=== PATIENT | male | born 1950 | race Caucasian/White ===

== ENCOUNTER 2020-05-09 13:00 | Inpatient (IN) ==
[2020-05-09] MEDS ORDERED: Albuterol HFA INHALER 8 gm MDI INH ONE ×2 (13:52→17:31)
[2020-05-09] MEDS ORDERED: Dexamethasone IV 4 MG/ML VIAL 1 ml VIAL IV SLOW PU ONE (13:53)
[2020-05-09] MEDS ORDERED: NS 0.9% 500 ml BAG 500 ML IV ONE (13:53)
[2020-05-09 14:50] LABS: ABS Lymphocytes 0.3 10^3/ul (1.0-4.8); ABS Monocytes 0.7 10^3/ul (0-0.8); ABS Neutrophils 11.5 10^3/ul (1.5-7.7); Hematocrit 41 % (42-52); Hemoglobin 13.7 g/dL (14.0-18.0); Lymphocyte % 2.6 %; Mean Corpuscular HGB Conc 34 g/dL (31-36); Mean Corpuscular Hemoglobin 32 pg (27-31); Mean Corpuscular Volume 95 fL (80-94); Mean Platelet Volume 8.1 fL (7.4-10.4); Platelet Count 215 10^3/uL (150-450); Red Blood Count 4.26 10^6 /uL (4.18-5.48); Red Cell Distribution Width 15 % (10-15); White Blood Count 12.5 10^3/uL (3.5-10.8)
[2020-05-09 15:05] LABS: Influenza A Molecular Negative (Negative); Influenza B Molecular Negative (Negative)
[2020-05-09 15:14] LABS: LDH 159 U/L (140-271)
[2020-05-09 15:16] LABS: ALT 11 U/L (7-52); AST 18 U/L (13-39); Albumin 3.8 g/dL (3.2-5.2); Albumin/Globulin Ratio 1.2 (1-3); Alkaline Phosphatase 59 U/L (34-104); Anion Gap 7 mmol/L (2-11); BUN/Creatinine Ratio 28.4 (8-20); Blood Urea Nitrogen 29 mg/dL (6-24); C Reactive Protein 390.99 mg/L (<8.01); CO2 Carbon Dioxide 30 mmol/L (22-32); Calcium 9.4 mg/dL (8.6-10.3); Chloride 98 mmol/L (101-111); EGFR African American 87.6 (>60); EGFR Non-African American 72.4 (>60); Globulin 3.3 g/dL (2-4); Glucose 104 mg/dL (70-100); Potassium 4.4 mmol/L (3.5-5.0); Sodium 135 mmol/L (135-145); Total Protein 7.1 g/dL (6.4-8.9)
[2020-05-09] MEDS ORDERED: Azithromycin 500 mg/250 ml NS 500 MG/250 ML BAG IVPB ONE (15:22)
[2020-05-09] MEDS ORDERED: cefTRIAXone 1 gm/50 mL NS BAG 1 GM/50 ML BAG IV ONE (15:22)
[2020-05-09 15:30] LABS: Ferritin 442.4 ng/mL (24-336)
[2020-05-09] MEDS ORDERED: NS 0.9% 1000 ml BAG 2,250 ML IV ONE (15:30)
[2020-05-09] MEDS ORDERED: Iohexol 350 (CONTRAST) 500 ML MDV IV ONE (15:30)
[2020-05-09 16:05] LABS: Troponin I 0.03 ng/mL (<0.03)
[2020-05-09] MEDS ORDERED: cefTRIAXone 1 gm/50 mL NS BAG 1 GM/50 ML BAG IVPB SCH (19:55)
[2020-05-09] MEDS ORDERED: Azithromycin 500 mg/250 ml NS 500 MG/250 ML BAG IVPB SCH (20:00)
[2020-05-09] MEDS ORDERED: Albuterol HFA INHALER 8 gm MDI INH PRN (20:04)
[2020-05-09 20:48] LABS: Magnesium 1.9 mg/dL (1.9-2.7)
[2020-05-09 21:01] LABS: Cholesterol 114 mg/dL; HDL Cholesterol 43.4 mg/dL; LDL Cholesterol 54 mg/dL; Triglycerides 84 mg/dL
[2020-05-09] MEDS: Mometasone/Formoter 200/5 MDI INH SCH (22:41)
[2020-05-09] MEDS: Albuterol HFA INHALER 8 gm MDI INH SCH (22:42)
[2020-05-10] MEDS: Enoxaparin 40 MG/0.4 ML SYR SUBCUT SCH ×2 (00:18→22:29)
[2020-05-10] MEDS: Albuterol HFA INHALER 8 gm MDI INH SCH ×6 (03:31→23:33)
[2020-05-10 06:16] LABS: ABS Lymphocytes 0.3 10^3/ul (1.0-4.8); ABS Monocytes 0.2 10^3/ul (0-0.8); ABS Neutrophils 5.9 10^3/ul (1.5-7.7); Hematocrit 36 % (42-52); Hemoglobin 11.8 g/dL (14.0-18.0); Lymphocyte % 4.8 %; Mean Corpuscular HGB Conc 33 g/dL (31-36); Mean Corpuscular Hemoglobin 32 pg (27-31); Mean Corpuscular Volume 96 fL (80-94); Mean Platelet Volume 8.6 fL (7.4-10.4); Platelet Count 192 10^3/uL (150-450); Red Blood Count 3.72 10^6 /uL (4.18-5.48); Red Cell Distribution Width 15 % (10-15); White Blood Count 6.4 10^3/uL (3.5-10.8)
[2020-05-10 06:31] LABS: BUN/Creatinine Ratio 30.3 (8-20); Calcium 8.6 mg/dL (8.6-10.3); EGFR African American 102.6 (>60); EGFR Non-African American 84.8 (>60); Potassium 3.7 mmol/L (3.5-5.0)
[2020-05-10] MEDS: SPIRIVA Respimat (tiotropium) 2.5 mcg/inh Inhaler INH SCH (07:46)
[2020-05-10] MEDS: Mometasone/Formoter 200/5 MDI INH SCH ×2 (07:46→19:36)
[2020-05-10] MEDS ORDERED: Iohexol 300 (CONTRAST) 10 ML SDV IV ONE (11:54)
[2020-05-10] MEDS: Azithromycin 500 mg/250 ml NS 500 MG/250 ML BAG IVPB SCH (17:21)
[2020-05-10] MEDS: cefTRIAXone 1 gm/50 mL NS BAG 1 GM/50 ML BAG IVPB SCH (17:21)
[2020-05-10] MEDS: Benzocaine/Menthol LOZ PO PRN ×2 (17:22→22:35)
[2020-05-11] MEDS: Albuterol HFA INHALER 8 gm MDI INH SCH ×4 (03:36→19:12)
[2020-05-11 07:11] LABS: Hematocrit 35 % (42-52); Hemoglobin 11.3 g/dL (14.0-18.0); Mean Corpuscular HGB Conc 33 g/dL (31-36); Mean Corpuscular Hemoglobin 31 pg (27-31); Mean Corpuscular Volume 96 fL (80-94); Mean Platelet Volume 7.9 fL (7.4-10.4); Platelet Count 243 10^3/uL (150-450); Red Blood Count 3.63 10^6 /uL (4.18-5.48); Red Cell Distribution Width 15 % (10-15)
[2020-05-11 07:34] LABS: BUN/Creatinine Ratio 31.3 (8-20); C Reactive Protein 140.2 mg/L (<8.01); Calcium 8.5 mg/dL (8.6-10.3); EGFR Non-African American 95.8 (>60); Potassium 4.1 mmol/L (3.5-5.0)
[2020-05-11] MEDS: SPIRIVA Respimat (tiotropium) 2.5 mcg/inh Inhaler INH SCH (07:42)
[2020-05-11] MEDS: Mometasone/Formoter 200/5 MDI INH SCH ×2 (07:42→19:12)
[2020-05-11 09:07] LABS: ABS Lymphocytes 0.4 10^3/ul (1.0-4.8); ABS Monocytes 0.4 10^3/ul (0-0.8); ABS Neutrophils 12.2 10^3/ul (1.5-7.7); Nucleated Red Blood Cells % 0.1
[2020-05-11] MEDS: Azithromycin 500 mg/250 ml NS 500 MG/250 ML BAG IVPB SCH (17:38)
[2020-05-11] MEDS: cefTRIAXone 1 gm/50 mL NS BAG 1 GM/50 ML BAG IVPB SCH (17:50)
[2020-05-11] MEDS: Benzocaine/Menthol LOZ PO PRN (17:55)
[2020-05-11] MEDS: Enoxaparin 40 MG/0.4 ML SYR SUBCUT SCH (19:36)
[2020-05-12] MEDS: Albuterol HFA INHALER 8 gm MDI INH SCH ×2 (01:00→07:23)
[2020-05-12] MEDS: Benzocaine/Menthol LOZ PO PRN ×4 (03:34→21:10)
[2020-05-12] MEDS: Mometasone/Formoter 200/5 MDI INH SCH ×2 (07:23→21:00)
[2020-05-12] MEDS: SPIRIVA Respimat (tiotropium) 2.5 mcg/inh Inhaler INH SCH (07:24)
[2020-05-12 07:27] LABS: ABS Lymphocytes 0.5 10^3/ul (1.0-4.8); ABS Monocytes 0.3 10^3/ul (0-0.8); ABS Neutrophils 10.3 10^3/ul (1.5-7.7); Hematocrit 36 % (42-52); Hemoglobin 11.9 g/dL (14.0-18.0); Lymphocyte % 4.2 %; Mean Corpuscular HGB Conc 33 g/dL (31-36); Mean Corpuscular Hemoglobin 32 pg (27-31); Mean Corpuscular Volume 95 fL (80-94); Mean Platelet Volume 7.9 fL (7.4-10.4); Nucleated Red Blood Cells % 0.1; Platelet Count 275 10^3/uL (150-450); Red Blood Count 3.79 10^6 /uL (4.18-5.48); Red Cell Distribution Width 15 % (10-15); White Blood Count 11.1 10^3/uL (3.5-10.8)
[2020-05-12 07:35] LABS: BUN/Creatinine Ratio 37.1 (8-20); Calcium 8.6 mg/dL (8.6-10.3); EGFR African American 135.3 (>60); EGFR Non-African American 111.8 (>60); Potassium 4.6 mmol/L (3.5-5.0)
[2020-05-12] MEDS: cefTRIAXone 1 gm/50 mL NS BAG 1 GM/50 ML BAG IVPB SCH (18:30)
[2020-05-12] MEDS: Azithromycin 500 mg/250 ml NS 500 MG/250 ML BAG IVPB SCH (18:30)
[2020-05-12] MEDS: Enoxaparin 40 MG/0.4 ML SYR SUBCUT SCH (21:10)
[2020-05-13] MEDS: SPIRIVA Respimat (tiotropium) 2.5 mcg/inh Inhaler INH SCH (07:45)
[2020-05-13] MEDS: Mometasone/Formoter 200/5 MDI INH SCH ×2 (07:45→19:32)
[2020-05-13] MEDS: cefTRIAXone 1 gm/50 mL NS BAG 1 GM/50 ML BAG IVPB SCH (17:16)
[2020-05-13] MEDS: Enoxaparin 40 MG/0.4 ML SYR SUBCUT SCH (19:34)
[2020-05-14] MEDS: Mometasone/Formoter 200/5 MDI INH SCH ×2 (09:35→19:24)
[2020-05-14] MEDS: SPIRIVA Respimat (tiotropium) 2.5 mcg/inh Inhaler INH SCH (09:35)
[2020-05-14] MEDS: cefTRIAXone 1 gm/50 mL NS BAG 1 GM/50 ML BAG IVPB SCH (17:24)
[2020-05-14] MEDS: Enoxaparin 40 MG/0.4 ML SYR SUBCUT SCH (20:17)
[2020-05-15] MEDS: Mometasone/Formoter 200/5 MDI INH SCH (07:38)
[2020-05-15] MEDS: SPIRIVA Respimat (tiotropium) 2.5 mcg/inh Inhaler INH SCH (07:38)
[2020-05-15] MEDS ORDERED: Magnesium Sulfate IV 1GM/100ML 1 GM/100 ML BAG IV ONE (08:34)
[2020-05-15 09:22] LABS: BUN/Creatinine Ratio 29.3 (8-20); Calcium 8.3 mg/dL (8.6-10.3); EGFR African American 112.7 (>60); EGFR Non-African American 93.2 (>60); Magnesium 1.8 mg/dL (1.9-2.7); Potassium 4.3 mmol/L (3.5-5.0)
[2020-05-15 11:24] VITALS: BP 145/76
== END 2020-05-15 18:10 | disposition home health service (06) | DRG 871 ==
LOC: ED 13:00 → MED 19:48
PROVIDERS: ADMIT Student in an Organized Health Care Education/Training Program; ATTEND Internal Medicine

== ENCOUNTER 2020-09-23 02:37 | Inpatient (IN) ==
[2020-09-23] MEDS ORDERED: methylPREDNISolone 125 mg 2 ML VIAL IV ONE (02:45)
[2020-09-23 03:28] LABS: ABS Eosinophils 0.3 10^3/ul (0-0.6); ABS Monocytes 0.4 10^3/ul (0-0.8); ABS Neutrophils 5.6 10^3/ul (1.5-7.7); Eosinophil % 3.7 %; Hematocrit 43 % (42-52); Hemoglobin 13.7 g/dL (14.0-18.0); Lymphocyte % 13.2 %; Mean Corpuscular HGB Conc 32 g/dL (31-36); Mean Corpuscular Hemoglobin 30 pg (27-31); Mean Corpuscular Volume 94 fL (80-94); Mean Platelet Volume 7.7 fL (7.4-10.4); Nucleated Red Blood Cells % 0.1; Platelet Count 256 10^3/uL (150-450); Red Blood Count 4.56 10^6 /uL (4.18-5.48); Red Cell Distribution Width 16 % (10-15); White Blood Count 7.3 10^3/uL (3.5-10.8)
[2020-09-23 03:35] LABS: INR 1.12 (0.82-1.09)
[2020-09-23 03:44] LABS: Albumin 4.5 g/dL (3.2-5.2); Albumin/Globulin Ratio 1.6 (1-3); BUN/Creatinine Ratio 25.6 (8-20); Calcium 9.9 mg/dL (8.6-10.3); EGFR African American 106.7 (>60); EGFR Non-African American 88.2 (>60); Globulin 2.9 g/dL (2-4); Potassium 4.1 mmol/L (3.5-5.0); Total Bilirubin 0.5 mg/dL (0.2-1.0); Total Protein 7.4 g/dL (6.4-8.9)
[2020-09-23 03:47] LABS: Troponin I 0.01 ng/mL (<0.03)
[2020-09-23] MEDS ORDERED: Albuterol 2.5mg/3 ml (0.083%) NEB.SOLN INH PRN (04:22)
[2020-09-23] MEDS: Azithromycin 500 mg/250 ml NS 500 MG/250 ML BAG IVPB SCH (05:18)
[2020-09-23] MEDS: Enoxaparin 40 MG/0.4 ML SYR SUBCUT SCH (05:19)
[2020-09-23] MEDS ORDERED: Albuterol/Ipratropium NEB.SOL (2.5/0.5 MG) 3 ML NEB.SOLN INH SCH ×2 (07:00→08:00)
[2020-09-23] MEDS ORDERED: Albuterol/Ipratropium NEB.SOL (2.5/0.5 MG) 3 ML NEB.SOLN INH PRN (09:00)
[2020-09-23] MEDS ORDERED: Mometasone/Formoter 200/5 MDI INH SCH (09:00)
[2020-09-23] MEDS ORDERED: SPIRIVA Respimat (tiotropium) 2.5 mcg/inh Inhaler INH SCH (09:00)
[2020-09-23] MEDS ORDERED: LORazepam 2 mg VIAL 1 ml IV PUSH ONE ×2 (09:02→21:05)
[2020-09-23] MEDS ORDERED: Lorazepam PYXIS KEY PRN ×2 (09:02→21:05)
[2020-09-23] MEDS ORDERED: Magnesium Sulfate 2 gm BAG 2 GM/50 ML BAG IVPB ONE (09:03)
[2020-09-23] MEDS: Pantoprazole VIAL 40 MG VIAL IV SCH (09:37)
[2020-09-23] MEDS: cefTRIAXone 1 gm/50 mL NS BAG 1 GM/50 ML BAG IVPB SCH (09:39)
[2020-09-23] MEDS: Albuterol/Ipratropium NEB.SOL (2.5/0.5 MG) 3 ML NEB.SOLN INH SCH ×4 (11:21→22:54)
[2020-09-23] MEDS: methylPREDNISolone SOD 40 mg/ml 1 ml VIAL IV SCH ×2 (11:42→19:55)
[2020-09-24] MEDS: Albuterol/Ipratropium NEB.SOL (2.5/0.5 MG) 3 ML NEB.SOLN INH SCH ×6 (03:04→22:38)
[2020-09-24] MEDS: Azithromycin 500 mg/250 ml NS 500 MG/250 ML BAG IVPB SCH (04:19)
[2020-09-24] MEDS: methylPREDNISolone SOD 40 mg/ml 1 ml VIAL IV SCH ×3 (04:19→19:38)
[2020-09-24 04:24] LABS: ABS Lymphocytes 0.2 10^3/ul (1.0-4.8); ABS Monocytes 0.1 10^3/ul (0-0.8); ABS Neutrophils 8.4 10^3/ul (1.5-7.7); Hematocrit 37 % (42-52); Hemoglobin 11.8 g/dL (14.0-18.0); Lymphocyte % 2.3 %; Mean Corpuscular HGB Conc 32 g/dL (31-36); Mean Corpuscular Hemoglobin 30 pg (27-31); Mean Corpuscular Volume 93 fL (80-94); Mean Platelet Volume 8.1 fL (7.4-10.4); Platelet Count 235 10^3/uL (150-450); Red Blood Count 3.92 10^6 /uL (4.18-5.48); Red Cell Distribution Width 16 % (10-15); White Blood Count 8.7 10^3/uL (3.5-10.8)
[2020-09-24 04:40] LABS: BUN/Creatinine Ratio 29.6 (8-20); Calcium 9.2 mg/dL (8.6-10.3); EGFR African American 114.3 (>60); EGFR Non-African American 94.5 (>60); Magnesium 2.3 mg/dL (1.9-2.7); Potassium 4.9 mmol/L (3.5-5.0)
[2020-09-24] MEDS: Enoxaparin 40 MG/0.4 ML SYR SUBCUT SCH (05:36)
[2020-09-24] MEDS: cefTRIAXone 1 gm/50 mL NS BAG 1 GM/50 ML BAG IVPB SCH (08:34)
[2020-09-24] MEDS: Pantoprazole VIAL 40 MG VIAL IV SCH (08:34)
[2020-09-25] MEDS: Albuterol/Ipratropium NEB.SOL (2.5/0.5 MG) 3 ML NEB.SOLN INH SCH ×4 (03:12→21:14)
[2020-09-25] MEDS: methylPREDNISolone SOD 40 mg/ml 1 ml VIAL IV SCH (03:37)
[2020-09-25 04:03] LABS: ABS Lymphocytes 0.3 10^3/ul (1.0-4.8); ABS Monocytes 0.3 10^3/ul (0-0.8); ABS Neutrophils 12.9 10^3/ul (1.5-7.7); Hematocrit 34 % (42-52); Hemoglobin 10.8 g/dL (14.0-18.0); Mean Corpuscular HGB Conc 32 g/dL (31-36); Mean Corpuscular Hemoglobin 30 pg (27-31); Mean Corpuscular Volume 94 fL (80-94); Mean Platelet Volume 8.4 fL (7.4-10.4); Platelet Count 223 10^3/uL (150-450); Red Blood Count 3.61 10^6 /uL (4.18-5.48); Red Cell Distribution Width 16 % (10-15); White Blood Count 13.4 10^3/uL (3.5-10.8)
[2020-09-25 04:17] LABS: BUN/Creatinine Ratio 33.8 (8-20); Calcium 8.7 mg/dL (8.6-10.3); EGFR African American 121.2 (>60); EGFR Non-African American 100.2 (>60); Magnesium 2.1 mg/dL (1.9-2.7); Potassium 4.9 mmol/L (3.5-5.0)
[2020-09-25] MEDS: Azithromycin 500 mg/250 ml NS 500 MG/250 ML BAG IVPB SCH (04:45)
[2020-09-25] MEDS: Enoxaparin 40 MG/0.4 ML SYR SUBCUT SCH (05:05)
[2020-09-25] MEDS: cefTRIAXone 1 gm/50 mL NS BAG 1 GM/50 ML BAG IVPB SCH (09:54)
[2020-09-25] MEDS: Pantoprazole VIAL 40 MG VIAL IV SCH (09:55)
[2020-09-25] MEDS ORDERED: Albuterol/Ipratropium NEB.SOL (2.5/0.5 MG) 3 ML NEB.SOLN INH SCH (13:00)
[2020-09-25] MEDS ORDERED: Albuterol 2.5mg/3 ml (0.083%) NEB.SOLN INH SCH (14:00)
[2020-09-25] MEDS: Mometasone/Formoter 100/5 MDI INH SCH (21:09)
[2020-09-26] MEDS: Albuterol/Ipratropium NEB.SOL (2.5/0.5 MG) 3 ML NEB.SOLN INH SCH ×6 (01:07→20:48)
[2020-09-26] MEDS: Azithromycin 500 mg/250 ml NS 500 MG/250 ML BAG IVPB SCH (05:02)
[2020-09-26] MEDS: Enoxaparin 40 MG/0.4 ML SYR SUBCUT SCH (05:07)
[2020-09-26 05:55] LABS: ABS Lymphocytes 0.3 10^3/ul (1.0-4.8); ABS Monocytes 0.3 10^3/ul (0-0.8); ABS Neutrophils 9.5 10^3/ul (1.5-7.7); Hematocrit 33 % (42-52); Hemoglobin 10.6 g/dL (14.0-18.0); Lymphocyte % 2.9 %; Mean Corpuscular HGB Conc 32 g/dL (31-36); Mean Corpuscular Hemoglobin 31 pg (27-31); Mean Corpuscular Volume 95 fL (80-94); Mean Platelet Volume 7.8 fL (7.4-10.4); Platelet Count 195 10^3/uL (150-450); Red Blood Count 3.45 10^6 /uL (4.18-5.48); Red Cell Distribution Width 16 % (10-15); White Blood Count 10.2 10^3/uL (3.5-10.8)
[2020-09-26 06:08] LABS: BUN/Creatinine Ratio 32.8 (8-20); Calcium 8.3 mg/dL (8.6-10.3); EGFR African American 142.3 (>60); EGFR Non-African American 117.6 (>60); Potassium 4.9 mmol/L (3.5-5.0)
[2020-09-26] MEDS: SPIRIVA Respimat (tiotropium) 2.5 mcg/inh Inhaler INH SCH (07:18)
[2020-09-26] MEDS ORDERED: FLUTICASONE/UMECLIDIN/VILANTER 1 PUFF MDI INH SCH (09:00)
[2020-09-26] MEDS: cefTRIAXone 1 gm/50 mL NS BAG 1 GM/50 ML BAG IVPB SCH (09:03)
[2020-09-26] MEDS: Mometasone/Formoter 100/5 MDI INH SCH ×2 (11:58→20:48)
[2020-09-27] MEDS: Albuterol/Ipratropium NEB.SOL (2.5/0.5 MG) 3 ML NEB.SOLN INH SCH ×5 (00:11→20:35)
[2020-09-27] MEDS: Enoxaparin 40 MG/0.4 ML SYR SUBCUT SCH (05:40)
[2020-09-27 05:46] LABS: Hematocrit 34 % (42-52); Hemoglobin 10.6 g/dL (14.0-18.0); Mean Corpuscular HGB Conc 31 g/dL (31-36); Mean Corpuscular Hemoglobin 30 pg (27-31); Mean Corpuscular Volume 96 fL (80-94); Mean Platelet Volume 7.9 fL (7.4-10.4); Platelet Count 187 10^3/uL (150-450); Red Blood Count 3.54 10^6 /uL (4.18-5.48); Red Cell Distribution Width 16 % (10-15); White Blood Count 8.1 10^3/uL (3.5-10.8)
[2020-09-27 06:01] LABS: Albumin 3.3 g/dL (3.2-5.2); Albumin/Globulin Ratio 1.7 (1-3); BUN/Creatinine Ratio 26.8 (8-20); Calcium 8.6 mg/dL (8.6-10.3); EGFR African American 133.1 (>60); Magnesium 1.9 mg/dL (1.9-2.7); Potassium 4.9 mmol/L (3.5-5.0); Total Bilirubin 0.2 mg/dL (0.2-1.0); Total Protein 5.3 g/dL (6.4-8.9)
[2020-09-27] MEDS: SPIRIVA Respimat (tiotropium) 2.5 mcg/inh Inhaler INH SCH (08:34)
[2020-09-27] MEDS: Mometasone/Formoter 100/5 MDI INH SCH ×2 (08:35→20:35)
[2020-09-27] MEDS ORDERED: AZITHROMYCIN 500 MG TAB PO SCH (09:00)
[2020-09-27] MEDS: cefTRIAXone 1 gm/50 mL NS BAG 1 GM/50 ML BAG IVPB SCH (09:13)
[2020-09-28] MEDS: Albuterol/Ipratropium NEB.SOL (2.5/0.5 MG) 3 ML NEB.SOLN INH SCH ×4 (01:51→19:34)
[2020-09-28 05:05] LABS: Hematocrit 34 % (42-52); Hemoglobin 10.8 g/dL (14.0-18.0); Mean Corpuscular HGB Conc 32 g/dL (31-36); Mean Corpuscular Hemoglobin 30 pg (27-31); Mean Corpuscular Volume 95 fL (80-94); Mean Platelet Volume 8.2 fL (7.4-10.4); Platelet Count 195 10^3/uL (150-450); Red Blood Count 3.59 10^6 /uL (4.18-5.48); Red Cell Distribution Width 16 % (10-15); White Blood Count 7.3 10^3/uL (3.5-10.8)
[2020-09-28 05:21] LABS: BUN/Creatinine Ratio 33.3 (8-20); Blood Urea Nitrogen 21 mg/dL (6-24); Calcium 8.7 mg/dL (8.6-10.3); Chloride 98 mmol/L (101-111); EGFR African American 152.8 (>60); EGFR Non-African American 126.3 (>60); Glucose 119 mg/dL (70-100); Potassium 4.8 mmol/L (3.5-5.0); Sodium 140 mmol/L (135-145)
[2020-09-28 05:26] LABS: CO2 Carbon Dioxide 45 mmol/L (22-32)
[2020-09-28 05:39] LABS: ABS Lymphocytes 0.5 10^3/ul (1.0-4.8); ABS Monocytes 0.7 10^3/ul (0-0.8); Lymphocyte % 7.5 %; Nucleated Red Blood Cells % 0.1
[2020-09-28] MEDS: Enoxaparin 40 MG/0.4 ML SYR SUBCUT SCH (05:56)
[2020-09-28] MEDS: Mometasone/Formoter 100/5 MDI INH SCH ×2 (08:03→19:35)
[2020-09-28] MEDS: SPIRIVA Respimat (tiotropium) 2.5 mcg/inh Inhaler INH SCH (08:03)
[2020-09-28] MEDS: cefTRIAXone 1 gm/50 mL NS BAG 1 GM/50 ML BAG IVPB SCH (10:45)
[2020-09-29] MEDS: Albuterol/Ipratropium NEB.SOL (2.5/0.5 MG) 3 ML NEB.SOLN INH SCH ×4 (01:23→20:36)
[2020-09-29 04:56] LABS: BUN/Creatinine Ratio 34.4 (8-20); Blood Urea Nitrogen 21 mg/dL (6-24); Calcium 8.5 mg/dL (8.6-10.3); Chloride 96 mmol/L (101-111); EGFR African American 158.6 (>60); EGFR Non-African American 131.1 (>60); Glucose 108 mg/dL (70-100); Sodium 139 mmol/L (135-145)
[2020-09-29 05:17] LABS: CO2 Carbon Dioxide 43 mmol/L (22-32)
[2020-09-29] MEDS: Enoxaparin 40 MG/0.4 ML SYR SUBCUT SCH (05:35)
[2020-09-29] MEDS: Mometasone/Formoter 100/5 MDI INH SCH ×2 (07:09→20:37)
[2020-09-29] MEDS: SPIRIVA Respimat (tiotropium) 2.5 mcg/inh Inhaler INH SCH (07:09)
[2020-09-29] MEDS: cefTRIAXone 1 gm/50 mL NS BAG 1 GM/50 ML BAG IVPB SCH (09:48)
[2020-09-30] MEDS: Albuterol/Ipratropium NEB.SOL (2.5/0.5 MG) 3 ML NEB.SOLN INH SCH ×4 (01:59→19:03)
[2020-09-30] MEDS: Enoxaparin 40 MG/0.4 ML SYR SUBCUT SCH (06:33)
[2020-09-30] MEDS: Mometasone/Formoter 100/5 MDI INH SCH ×2 (07:39→19:03)
[2020-09-30] MEDS: SPIRIVA Respimat (tiotropium) 2.5 mcg/inh Inhaler INH SCH (07:39)
[2020-09-30 08:37] LABS: Hematocrit 35 % (42-52); Hemoglobin 11.4 g/dL (14.0-18.0); Mean Corpuscular HGB Conc 32 g/dL (31-36); Mean Corpuscular Hemoglobin 31 pg (27-31); Mean Corpuscular Volume 95 fL (80-94); Mean Platelet Volume 7.8 fL (7.4-10.4); Platelet Count 213 10^3/uL (150-450); Red Blood Count 3.74 10^6 /uL (4.18-5.48); Red Cell Distribution Width 16 % (10-15)
[2020-09-30 08:54] LABS: BUN/Creatinine Ratio 30.8 (8-20); Calcium 8.7 mg/dL (8.6-10.3); EGFR African American 147.4 (>60); EGFR Non-African American 121.8 (>60); Potassium 4.8 mmol/L (3.5-5.0)
[2020-09-30 09:21] LABS: ABS Monocytes 0.9 10^3/ul (0-0.8); ABS Neutrophils 7.1 10^3/ul (1.5-7.7); Eosinophil % 0.4 %; Lymphocyte % 11.1 %; Nucleated Red Blood Cells % 0.1
[2020-10-01] MEDS: Albuterol/Ipratropium NEB.SOL (2.5/0.5 MG) 3 ML NEB.SOLN INH SCH ×4 (01:45→19:15)
[2020-10-01] MEDS: Enoxaparin 40 MG/0.4 ML SYR SUBCUT SCH (05:23)
[2020-10-01 07:26] LABS: BUN/Creatinine Ratio 31.7 (8-20); Calcium 8.7 mg/dL (8.6-10.3); EGFR African American 152.8 (>60); EGFR Non-African American 126.3 (>60); Potassium 4.8 mmol/L (3.5-5.0)
[2020-10-01] MEDS: SPIRIVA Respimat (tiotropium) 2.5 mcg/inh Inhaler INH SCH (07:42)
[2020-10-01] MEDS: Mometasone/Formoter 100/5 MDI INH SCH ×2 (07:43→19:14)
[2020-10-02] MEDS: Albuterol/Ipratropium NEB.SOL (2.5/0.5 MG) 3 ML NEB.SOLN INH SCH ×4 (01:34→18:58)
[2020-10-02] MEDS: Enoxaparin 40 MG/0.4 ML SYR SUBCUT SCH (06:05)
[2020-10-02 07:53] LABS: BUN/Creatinine Ratio 40.3 (8-20); Calcium 8.9 mg/dL (8.6-10.3); EGFR African American 142.3 (>60); EGFR Non-African American 117.6 (>60); Potassium 4.9 mmol/L (3.5-5.0)
[2020-10-02] MEDS: Mometasone/Formoter 100/5 MDI INH SCH ×2 (08:19→18:58)
[2020-10-02] MEDS: SPIRIVA Respimat (tiotropium) 2.5 mcg/inh Inhaler INH SCH (08:20)
[2020-10-02 12:33] LABS: Folate 4.59 ng/mL (>3.99)
[2020-10-02] MEDS: Benzocaine/Menthol LOZ PO PRN (21:21)
[2020-10-03] MEDS: Albuterol/Ipratropium NEB.SOL (2.5/0.5 MG) 3 ML NEB.SOLN INH SCH ×2 (01:21→07:07)
[2020-10-03] MEDS: Benzocaine/Menthol LOZ PO PRN (01:38)
[2020-10-03] MEDS: Enoxaparin 40 MG/0.4 ML SYR SUBCUT SCH (06:38)
[2020-10-03 06:49] LABS: BUN/Creatinine Ratio 36.4 (8-20); Calcium 8.3 mg/dL (8.6-10.3); EGFR African American 144.8 (>60); EGFR Non-African American 119.7 (>60); Magnesium 1.9 mg/dL (1.9-2.7); Potassium 4.7 mmol/L (3.5-5.0)
[2020-10-03] MEDS: Mometasone/Formoter 100/5 MDI INH SCH ×2 (07:07→10:09)
[2020-10-03] MEDS: SPIRIVA Respimat (tiotropium) 2.5 mcg/inh Inhaler INH SCH (07:07)
[2020-10-03] MEDS ORDERED: Magnesium Sulfate IV 1GM/100ML 1 GM/100 ML BAG IV ONE (07:14)
[2020-10-03 12:44] VITALS: BP 134/72
== END 2020-10-03 14:28 | disposition home or self-care (01) | DRG 190 ==
LOC: ED 02:37 → ICU 04:40 → MEDTELE 09-25 13:19
PROVIDERS: ADMIT Internal Medicine; ATTEND Internal Medicine

== ENCOUNTER 2020-12-17 12:44 | Observation (INO) ==
[2020-12-17] MEDS ORDERED: Azithromycin 500 mg/250 ml NS 500 MG/250 ML BAG IVPB ONE (12:51)
[2020-12-17] MEDS ORDERED: Albuterol/Ipratropium NEB.SOL (2.5/0.5 MG) 3 ML NEB.SOLN INH ONE (12:51)
[2020-12-17] MEDS ORDERED: cefTRIAXone 1 gm/50 mL NS BAG 1 GM/50 ML BAG IV ONE (12:51)
[2020-12-17] MEDS ORDERED: Magnesium Sulfate 2 gm BAG 2 GM/50 ML BAG IVPB ONE (12:52)
[2020-12-17 13:12] LABS: ABS Eosinophils 0.3 10^3/ul (0-0.6); ABS Monocytes 0.4 10^3/ul (0-0.8); ABS Neutrophils 4.8 10^3/ul (1.5-7.7); Eosinophil % 5.2 %; Hematocrit 40 % (42-52); Lymphocyte % 14.9 %; Mean Corpuscular HGB Conc 32 g/dL (31-36); Mean Corpuscular Hemoglobin 31 pg (27-31); Mean Corpuscular Volume 96 fL (80-94); Nucleated Red Blood Cells % 0.1; Platelet Count 271 10^3/uL (150-450); Red Blood Count 4.22 10^6 /uL (4.18-5.48); Red Cell Distribution Width 16 % (10-15); White Blood Count 6.5 10^3/uL (3.5-10.8)
[2020-12-17 13:37] LABS: Calcium 9.7 mg/dL (8.6-10.3); Potassium 4.6 mmol/L (3.5-5.0)
[2020-12-17 13:42] LABS: EGFR African American 106.7 (>60); EGFR Non-African American 88.2 (>60)
[2020-12-17] MEDS ORDERED: Magnesium Hydroxide LIQ 30 ML UDC PO PRN (14:59)
[2020-12-17] MEDS ORDERED: COVID-19 VACCINE, AD26(JANSSEN)/PF 0.5 ML IM ONE (14:59)
[2020-12-17] MEDS ORDERED: Enoxaparin 40 MG/0.4 ML SYR SUBCUT SCH (15:00)
[2020-12-17] MEDS ORDERED: Albuterol 2.5mg/3 ml (0.083%) NEB.SOLN INH PRN (15:01)
[2020-12-17] MEDS ORDERED: Albuterol/Ipratropium NEB.SOL (2.5/0.5 MG) 3 ML NEB.SOLN INH SCH ×2 (16:00→19:00)
[2020-12-18] MEDS: Albuterol/Ipratropium NEB.SOL (2.5/0.5 MG) 3 ML NEB.SOLN INH SCH ×2 (07:01→12:24)
[2020-12-18] MEDS ORDERED: SPIRIVA Respimat (tiotropium) 2.5 mcg/inh Inhaler INH SCH (09:00)
[2020-12-18 11:57] VITALS: BP 97/66
== END 2020-12-18 14:20 | disposition home or self-care (01) ==
LOC: ED 12:44 → MED 12:44
PROVIDERS: ADMIT Hospitalist; ATTEND Hospitalist

== ENCOUNTER 2021-06-12 11:53 | Inpatient (IN) ==
[2021-06-12] MEDS ORDERED: Dexamethasone IV 4 MG/ML VIAL 1 ml VIAL IV SLOW PU ONE (12:43)
[2021-06-12] MEDS ORDERED: Albuterol 2.5mg/3 ml (0.083%) NEB.SOLN INH ONE (12:43)
[2021-06-12 13:16] LABS: ABS Eosinophils 0.3 10^3/ul (0-0.6); ABS Lymphocytes 0.6 10^3/ul (1.0-4.8); ABS Monocytes 0.4 10^3/ul (0-0.8); Eosinophil % 7.3 %; Hematocrit 37 % (42-52); Hemoglobin 12.1 g/dL (14.0-18.0); Lymphocyte % 14.4 %; Mean Corpuscular HGB Conc 33 g/dL (31-36); Mean Corpuscular Hemoglobin 32 pg (27-31); Mean Corpuscular Volume 99 fL (80-94); Mean Platelet Volume 7.5 fL (7.4-10.4); Platelet Count 186 10^3/uL (150-450); Red Blood Count 3.73 10^6 /uL (4.18-5.48); Red Cell Distribution Width 14 % (10-15); White Blood Count 4.4 10^3/uL (3.5-10.8)
[2021-06-12 13:29] LABS: Activated Partial Thrombo Time 36.6 seconds (26.0-38.0); INR 1.06 (0.86-1.15)
[2021-06-12 13:35] LABS: ALT 9 U/L (7-52); AST 16 U/L (13-39); Albumin/Globulin Ratio 1.6 (1-3); Alkaline Phosphatase 43 U/L (35-149); Blood Urea Nitrogen 15 mg/dL (6-24); C Reactive Protein 17.01 mg/L (<8.01); Calcium 9.5 mg/dL (8.6-10.3); Chloride 92 mmol/L (101-111); Globulin 2.5 g/dL (2-4); Glucose 95 mg/dL (70-100); Potassium 4.8 mmol/L (3.5-5.0); Sodium 143 mmol/L (135-145); Total Protein 6.5 g/dL (6.4-8.9); eGFR CKD-EPI 100.9 (>60)
[2021-06-12 13:55] LABS: CO2 Carbon Dioxide 50 mmol/L (22-32)
[2021-06-12 14:10] LABS: LDH 136 U/L (140-271)
[2021-06-12 14:30] LABS: Ferritin 90.4 ng/mL (24-336)
[2021-06-12] MEDS ORDERED: Iohexol 350 (CONTRAST) 500 ML MDV IV ONE (14:41)
[2021-06-12 15:14] LABS: PO2 Arterial 101 mmHg (80-100)
[2021-06-12 15:26] LABS: PCO2 Arterial 112 mmHg (35-45)
[2021-06-12] MEDS ORDERED: Albuterol HFA INHALER 8 gm MDI INH PRN (20:20)
[2021-06-12] MEDS ORDERED: Albuterol 2.5mg/3 ml (0.083%) NEB.SOLN INH PRN (20:20)
[2021-06-12] MEDS ORDERED: Oxymetazoline 0.05% NASAL SPR 15 ML BTL BOTH NARES SCH (21:00)
[2021-06-12] MEDS ORDERED: Enoxaparin 40 MG/0.4 ML SYR SUBCUT SCH (23:45)
[2021-06-13] MEDS: Morphine ORAL CONCENTRATE 5 MG/0.25 ML ORAL.SYRIN PO PRN ×3 (04:38→19:50)
[2021-06-13 05:50] LABS: ABS Lymphocytes 0.3 10^3/ul (1.0-4.8); ABS Monocytes 0.2 10^3/ul (0-0.8); ABS Neutrophils 3.5 10^3/ul (1.5-7.7); Hematocrit 37 % (42-52); Lymphocyte % 7.2 %; Mean Corpuscular HGB Conc 33 g/dL (31-36); Mean Corpuscular Hemoglobin 33 pg (27-31); Mean Corpuscular Volume 100 fL (80-94); Mean Platelet Volume 7.8 fL (7.4-10.4); Nucleated Red Blood Cells % 0.1; Platelet Count 200 10^3/uL (150-450); Red Blood Count 3.68 10^6 /uL (4.18-5.48); Red Cell Distribution Width 14 % (10-15)
[2021-06-13 06:02] LABS: ALT 9 U/L (7-52); AST 13 U/L (13-39); Albumin/Globulin Ratio 1.5 (1-3); Alkaline Phosphatase 45 U/L (35-149); Blood Urea Nitrogen 16 mg/dL (6-24); Calcium 9.3 mg/dL (8.6-10.3); Chloride 89 mmol/L (101-111); Globulin 2.7 g/dL (2-4); Glucose 114 mg/dL (70-100); Phosphorus 1.5 mg/dL (2.5-5.0); Potassium 4.2 mmol/L (3.5-5.0); Sodium 141 mmol/L (135-145); Total Protein 6.7 g/dL (6.4-8.9); eGFR CKD-EPI 100.4 (>60)
[2021-06-13 06:31] LABS: CO2 Carbon Dioxide 48 mmol/L (22-32)
[2021-06-13] MEDS: Mometasone/Formoter 200/5 MDI INH SCH ×2 (06:56→21:20)
[2021-06-13] MEDS: SPIRIVA Respimat (tiotropium) 2.5 mcg/inh Inhaler INH SCH (07:03)
[2021-06-13] MEDS: methylPREDNISolone 125 mg 2 ML VIAL IV SCH ×2 (10:05→19:49)
[2021-06-13] MEDS ORDERED: Morphine ORAL CONCENTRATE 5 MG/0.25 ML ORAL.SYRIN PO ONE (11:22)
[2021-06-13] MEDS ORDERED: Polyethylene Glycol 3350 17 GM PACKET PO PRN (18:17)
[2021-06-14] MEDS: Mometasone/Formoter 200/5 MDI INH SCH ×2 (08:08→19:39)
[2021-06-14] MEDS: SPIRIVA Respimat (tiotropium) 2.5 mcg/inh Inhaler INH SCH (08:09)
[2021-06-14] MEDS: Senna TAB 8.6 mg TAB PO SCH (10:00)
[2021-06-14] MEDS: methylPREDNISolone 125 mg 2 ML VIAL IV SCH (10:01)
[2021-06-14] MEDS: Morphine ORAL CONCENTRATE 5 MG/0.25 ML ORAL.SYRIN PO PRN ×2 (14:32→22:05)
[2021-06-15] MEDS: SPIRIVA Respimat (tiotropium) 2.5 mcg/inh Inhaler INH SCH ×2 (06:51→07:13)
[2021-06-15] MEDS: Mometasone/Formoter 200/5 MDI INH SCH ×2 (06:52→19:32)
[2021-06-15] MEDS: Senna TAB 8.6 mg TAB PO SCH (10:10)
[2021-06-16] MEDS: Morphine ORAL CONCENTRATE 5 MG/0.25 ML ORAL.SYRIN PO PRN ×2 (00:47→13:37)
[2021-06-16] MEDS: Mometasone/Formoter 200/5 MDI INH SCH ×2 (08:04→20:46)
[2021-06-16] MEDS: SPIRIVA Respimat (tiotropium) 2.5 mcg/inh Inhaler INH SCH (08:05)
[2021-06-16] MEDS: Senna TAB 8.6 mg TAB PO SCH (09:32)
[2021-06-16] MEDS ORDERED: Scopolamine PATCH Remove NOTE PATCH OFF SCH (18:59)
[2021-06-17] MEDS: Mometasone/Formoter 200/5 MDI INH SCH (07:23)
[2021-06-17] MEDS: SPIRIVA Respimat (tiotropium) 2.5 mcg/inh Inhaler INH SCH (07:24)
[2021-06-17] MEDS: Senna TAB 8.6 mg TAB PO SCH (09:25)
[2021-06-17 10:41] VITALS: BP 108/54
== END 2021-06-17 12:40 | DRG 190 ==
LOC: ED 11:53 → SUATTDRO 20:12 → EDHOLD 20:12 → MED 06-13 01:44
PROVIDERS: ADMIT Student in an Organized Health Care Education/Training Program; ATTEND Internal Medicine